=== PATIENT | male | born 1965 | race Caucasian/White ===

== ENCOUNTER 2022-03-07 08:19 | Outpatient (CLI) | payer BC | END 2022-03-07 08:20 | disposition home or self-care (01) | LOC: BICRAD 08:19 | PROVIDERS: ATTEND Nurse Practitioner Family | DX: R05.3 Chronic cough (principal) | CPT/HCPCS: 71046 ==

== ENCOUNTER 2022-05-08 08:05 | Outpatient (CLI) | payer BC ==
[2022-05-08] MEDS ORDERED: Iopamidol 370 76% 100 ML VIAL ONE (09:29)
== END 2022-05-08 08:06 | disposition home or self-care (01) ==
LOC: CT 08:05
PROVIDERS: ATTEND Internal Medicine Gastroenterology
DX: R63.4 Abnormal weight loss (principal)
CPT/HCPCS: 74177; Q9967